=== PATIENT | female | born 1970 | race Caucasian/White ===

== ENCOUNTER 2016-08-16 20:02 | Observation (INO) | payer BC ==
--- NOTE | ~2016-08-16 | OP ---
Record Of Operation [facility] [address] [place]. [address] NAME: HERMELINDO OLMEDO : 66 STATUS : DIS Sathish PAT#: [id number] AGE: 46 ADM/REG DATE : 08/16/16 MR#: [id number] REPORT SERV DATE: 08/18/16 DICTATED BY: VEL FISHER DATE: 08/18/16 REPORT STATUS : Draft TRANSCRIBED BY: MODL DATE: 08/18/16 DATE OF PROCEDURE: 08/16/2016 PREOPERATIVE DIAGNOSIS: Acute appendicitis. POSTOPERATIVE DIAGNOSIS: Acute suppurative appendicitis. PROCEDURE: Laparoscopic appendectomy. SURGEON: Vel Fisher M.D. DESCRIPTION OF OPERATIVE PROCEDURE: The patient was brought to operating suite, placed in a supine position, underwent satisfactory general endotracheal anesthesia without incident. The skin of the abdomen was scrubbed, prepped, and draped in usual sterile fashion. 0.5% Marcaine with epinephrine utilized as supplemental local anesthesia at all intended trocar sites. Initially, an infraumbilical incision was performed dissecting through skin and subcutaneous tissue to the umbilical fascia. This was grasped with a Anirudh clamp and elevated and a disposable Veress insufflation needle was inserted through the umbilical fascia into the peritoneal cavity. Intraperitoneal tip location was ascertained using the saline hanging drop method. CO2 was insufflated for pressures of 15 mmHg throughout the case. After adequate insufflation and pressure were obtained, the Veress needle was removed, disposable bladed shielded 12 mm trocar was inserted through the umbilical fascia in the peritoneal cavity. Following which a rigid forward-viewing 10 mm laparoscope was inserted. Visualization of the intraabdominal parietes revealed no evidence of injury from initial insufflation or puncture. Two additional trocars were placed under direct visualization, both 5 mm in size. One in the suprapubic area through the previous section incision and an additional one in the epigastrium. The camera was switched the 5 mm epigastric port. Visualization of the right lower quadrant revealed acute suppurative appendicitis. The appendix was tucked behind the cecum between its junction with the ileum. It was freed up bluntly and showed no evidence of rupture. An avascular window was created at the base of the appendix through which was passed an Endo LACEY linear stapler with GI load. This was actuated and fired transecting the appendix from the cecum. An additional two firings of this same stapler with a vascular load was successful in transecting the mesoappendix, and the appendix was placed inside an Endo retrieval pouch. The ileocecal area was irrigated copiously with saline. Hemostasis was assured. Trocars were removed. No muscular bleeding was noted. The appendix was withdrawn through the umbilicus and removed and CO2 was allowed to egress from peritoneal cavity. The umbilicus was closed with [id number] suture of 0 Vicryl, subcutaneous tissue closed Record Of Operation [facility] [address] [place]. [address] NAME: HERMELINDO OLMEDO : 66 STATUS : DIS Sathish PAT#: [id number] AGE: 46 ADM/REG DATE : 08/16/16 MR#: [id number] REPORT SERV DATE: 08/18/16 DICTATED BY: EVL FISHER DATE: 08/18/16 REPORT STATUS : Draft TRANSCRIBED BY: MODL DATE: 08/18/16 at all sites with interrupted 4-0 Vicryl, running subcuticular stitch of 4-0 Vicryl for the skin, following which Dermabond and skin adhesive were placed. The patient tolerated the procedure well and she was returned to PACU in stable condition. At the termination procedure, sponge, needle, lap, and instrument counts were correct x3. ESTIMATED BLOOD LOSS: Less than 15 to 20 mL. SALVADOR/RICCOL Vel Fisher M.D. / [id number] CC: Vel Fisher M.D.
[2016-08-17] MEDS ORDERED: CIP5 PO (12:15)
[2016-08-17] MEDS ORDERED: NORCO1 TA1 PO (12:16)
== END 2016-08-17 14:53 | disposition home or self-care (01) ==
LOC: ER 20:02 → SDC/OF 22:08 → 5SO 23:20
PROC: 0DTJ4ZZ Resection of Appendix, Percutaneous Endoscopic Approach (ICD-10-PCS; principal; 2016-08-16)
DX: K35.80 Unspecified acute appendicitis (principal); Z98.890 Other specified postprocedural states
CPT/HCPCS: 88304; 96374; 96376; A9270-GY; G0378; J1956; J2250; J2270; J2405; J2550; J2710; J3010